=== PATIENT | female | born 1995 | race African-American/Black ===

== ENCOUNTER 2022-10-19 01:29 | Emergency (ER) | payer SELFPAY ==
[~2022-10-19] VITALS: Ht 167.6 cm; Wt 114.7 kg
[2022-10-19 01:35] VITALS: BP 133/92
[2022-10-19] MEDS ORDERED: ALBUAER3 IN (02:54)
[2022-10-19] MEDS ORDERED: PRED20TA2 PO (02:54)
== END 2022-10-19 02:59 | disposition home or self-care (01) ==
LOC: ER 01:29
DX: J06.9 Acute upper respiratory infection, unspecified (principal); R07.89 Other chest pain
CPT/HCPCS: 71045